=== PATIENT | male | born 1955 | race Caucasian/White ===

== ENCOUNTER 2023-02-11 18:25 | Outpatient (CLI) | payer MEDICARE, MEDICAID ==
[2023-02-11 19:14] LABS: BASOPHILS % (AUTO) 0.5 %; EOSINOPHILS # (AUTO) 0.2 10^3/uL (0.0-0.7); HCT - HEMATOCRIT 41.8 % (42.0-52.0); HGB - HEMOGLOBIN 14.6 g/dL (14.0-18.0); LYMPHOCYTES % (AUTO) 17.9 %; MEAN CORPUSCULAR HEMOGLOBIN 31.9 pg (27.0-31.0); MEAN CORPUSCULAR HGB CONC 34.9 g/dL (32.0-36.0); MEAN CORPUSCULAR VOLUME 91.3 fL (80.0-94.0); MEAN PLATELET VOLUME 8.8 fL (7.4-11.4); MONOCYTES # (AUTO) 0.8 10^3/uL (0.0-1.0); MONOCYTES % (AUTO) 15.2 %; NEUTROPHILS # (AUTO) 3.4 10^3/uL (1.5-6.6); NEUTROPHILS % (AUTO) 62.2 %; PLT - PLATELET COUNT 213 10^3/uL (130-450); RED BLOOD COUNT 4.58 10^6/uL (4.70-6.10); RED CELL DISTRIBUTION WIDTH 12.5 % (12.0-15.0); WHITE BLOOD COUNT 5.5 x10^3/uL (4.8-10.8)
[2023-02-11 19:31] LABS: ALBUMIN 4.9 g/dL (3.2-5.5); ALBUMIN/GLOBULIN RATIO 1.8 (1.0-2.2); ALKALINE PHOSPHATASE 31 IU/L (42-121); ALT ALANINE AMINOTRANSFERASE 16 IU/L (10-60); AST ASPARTATE AMINOTRANSFERASE 22 IU/L (10-42); BILIRUBIN,TOTAL 1.8 mg/dL (0.2-1.0); BUN - BLOOD UREA NITROGEN 13 mg/dL (6-20); CALCIUM 9.5 mg/dL (8.5-10.3); CARBON DIOXIDE - CO2 26 mmol/L (21-32); CHLORIDE 101 mmol/L (101-111); CHOL/HDL RATIO 2.5 (<5.0); CHOLESTEROL 247 mg/dL; CREATININE 0.6 mg/dL (0.6-1.2); GAMMA GLUTAMYL TRANSPEPTIDASE 20 IU/L (8-55); GFR - MDRD 134 (>89); GLUCOSE 99 mg/dL (70-100); HDL CHOLESTEROL 99 mg/dL; LDL CHOLESTEROL,CALCULATED 135 mg/dL; LDL/HDL RATIO 1.4 (<3.6); SODIUM 139 mmol/L (135-145); TOTAL PROTEIN 7.7 g/dL (6.7-8.2); TRIGLYCERIDES 65 mg/dL; VLDL CHOLESTEROL 13 mg/dL
[2023-02-11 19:42] LABS: THYROID STIMULATING HORMONE 1.63 uIU/mL (0.34-5.60)
--- NOTE | 2023-02-12 15:31 | XRAY Report ---
PROCEDURE: Cervical Spine 2 View INDICATIONS: NECK PAIN TECHNIQUE: 3 view(s) of the cervical spine were acquired. COMPARISON: None. FINDINGS: Bones: No fractures or dislocations to the C7-T1 level. The lateral masses of C1 appear intact on t he odontoid view. No suspicious bony lesions. There is moderate to severe disc space narrowing at C 5-6, C6-7, mild throughout the remainder of the cervical spine. Multilevel uncovertebral hypertrophy is present. Minimal anterior osteophytes are present. Soft tissues: No prevertebral soft tissue swelling. IMPRESSION: Degenerative changes most severe at 5 6 and C6-7. Reviewed by: Olga Dutton MD on 02/12/2023 3:30 PM PDT Approved by: Olga Dutton MD on 02/12/2023 3:30 PM PDT Station ID: [id number]
== END 2023-02-11 18:26 | disposition home or self-care (01) ==
LOC: DI 18:25
PROVIDERS: ATTEND Nurse Practitioner
DX: M47.812 Spondylosis without myelopathy or radiculopathy, cervical region (principal); R07.89 Other chest pain; Z13.220 Encounter for screening for lipoid disorders; R41.3 Other amnesia; F10.10 Alcohol abuse, uncomplicated; Z12.5 Encounter for screening for malignant neoplasm of prostate
CPT/HCPCS: 36415; 72040; 80053; 80061; 82607; 82977; 84443; 85025; G0103; 83721; 84153

== ENCOUNTER 2023-02-16 13:47 | Outpatient (CLI) | payer MEDICARE, MEDICAID ==
[2023-02-16] MEDS ORDERED: iohexoL-300 100 ML VIAL ONE (13:57)
[2023-02-16] MEDS ORDERED: iohexoL-300 100 ML VIAL IVP ONE (14:15)
--- NOTE | 2023-02-16 18:29 | CT Report ---
PROCEDURE: CHEST W INDICATIONS: CHEST PAIN CONTRAST: 100ml Omnipaque 300 TECHNIQUE: After the administration of intravenous contrast, 1 mm axial images were acquired from the pulmonary apices through the posterior costophrenic angles. Axial 5 mm soft tissue kernel reconstructions were performed as well as 8 mm axial MIP and coronal and sagittal 5 mm reformations. For radiation dose reduction, the following was used: automated exposure control, adjustment of mA and/or kV according to patient size. COMPARISON: None. FINDINGS: Image quality: Excellent. Lungs and pleura: No consolidation. No pleural effusions. No pneumothorax. No suspicious pulmonary n odules which require follow up. Mediastinum: Heart size is normal. No pericardial effusions. No mediastinal adenopathy by size criter ia. Mild aneurysmal dilatation of the ascending aorta measuring 0.2 cm. Chest wall and lower neck: Thyroid is unremarkable. No axillary or supraclavicular adenopathy by size . Bones: Segmental displaced right first rib fracture. Right lateral second rib fracture. Displaced rig ht lateral third rib fracture. Mildly displaced right posterior lateral fourth rib fracture. Mildly d isplaced right posterior fifth rib fracture. Mildly displaced right posterior sixth rib fracture. Non displaced right seventh rib fracture. There are multiple old bilateral fractures. There is a fracture of the left third anterolateral rib which is of uncertain chronicity. There is an acute left posteri or seventh rib fracture. There is an acute left posterior sixth rib fracture. There is also an acute posterior left third, left fourth, and left fifth rib fractures. No aggressive osseous abnormality. N o acute compression fractures. T12 superior endplate Schmorl's node. Upper Abdomen: Unremarkable. IMPRESSION: 1. There are acute fractures of the right first through seventh ribs (7 different ribs on the right a re acutely fractured) 2. There are acute fractures of the left third through seventh ribs (5 different left ribs are acutel y fractured). 3. No acute compression fractures. No pneumothorax. No acute pulmonary process. 4. Mild aneurysmal dilatation of the ascending aorta, measuring 4.2 cm. Reviewed by: Parker Mendoza MD on 02/16/2023 6:28 PM PDT Approved by: Parker Mendoza MD on 02/16/2023 6:28 PM PDT Station ID: [id number]
== END 2023-02-16 13:48 | disposition home or self-care (01) ==
LOC: DI 13:47
PROVIDERS: ATTEND Nurse Practitioner
DX: S22.43XA Multiple fractures of ribs, bilateral, initial encounter for closed fracture (principal); I71.21 Aneurysm of the ascending aorta, without rupture
CPT/HCPCS: 71260; Q9967

== ENCOUNTER 2023-06-08 08:00 | Outpatient (CLI) | payer MEDICARE, MEDICAID ==
[2023-06-08 21:34] LABS: FECAL OCCULT BLOOD (FIT) NEGATIVE (NEGATIVE)
== END 2023-06-08 23:59 | disposition home or self-care (01) ==
LOC: LAB.R 08:00
PROVIDERS: ATTEND Nurse Practitioner
DX: Z12.11 Encounter for screening for malignant neoplasm of colon (principal)
CPT/HCPCS: 82274